=== PATIENT | female | born 1955 | race Hispanic/Latino ===

== ENCOUNTER 2018-05-20 11:33 | Outpatient (CLI) | payer OTHER, SELFPAY ==
--- NOTE | 2018-05-20 17:12 | EKG ---
Test Reason : Blood Pressure : / mmHG Vent. Rate : 065 BPM Atrial Rate : 065 BPM P-R Int : 184 ms QRS Dur : 090 ms QT Int : 398 ms P-R-T Axes : 065 067 029 degrees QTc Int : 413 ms Normal sinus rhythm Cannot rule out Anterior infarct , age undetermined Abnormal ECG Confirmed by TERE HOGAN ([id number]) on 05/20/2018 5:12:33 PM Referred By: YUE Confirmed By:TERE HOGAN
== END 2018-05-20 11:34 | disposition home or self-care (01) ==
LOC: LABBT 11:33
PROVIDERS: ATTEND Orthopaedic Surgery
DX: Z01.818 Encounter for other preprocedural examination (principal); S52.502A Unspecified fracture of the lower end of left radius, initial encounter for closed fracture
CPT/HCPCS: 93005; 93010

== ENCOUNTER 2018-05-21 05:42 | Day surgery (SDC) | payer OTHER, SELFPAY ==
[2018-05-20 11:40] VITALS: BMI 27.1
[2018-05-21] MEDS ORDERED: CEFAZOLIN/Water 2 GM/20 ML SYRINGE ONE (06:52)
[2018-05-21] MEDS ORDERED: Fentanyl 100 MCG/2 ML VIAL ONE ×4 (07:24→09:02)
[2018-05-21] MEDS ORDERED: Midazolam HCl 2 mg/2 ml Vial ONE (07:24)
--- NOTE | 2018-05-21 08:25 | RAD ---
2 VIEWS LEFT WRIST: Date: 05/21/18 INDICATION: Open reduction and internal fixation of left wrist. COMPARISON: Prior exam dated 05/16/18. FINDINGS: Since the comparison examination, there has been interval reduction and volar plating of the distal r adial metaphyseal fracture. A minimally displaced ulnar styloid process fracture appears unchanged in position. IMPRESSION: Postoperative left wrist. POS: CAL
[2018-05-21] MEDS ORDERED: Ketorolac Tromethamine 30 MG/ML VIAL ONE (08:36)
[2018-05-21] MEDS ORDERED: Morphine 4 MG/ML VIAL ONE (09:05)
--- NOTE | 2018-05-21 09:33 | OP ---
DATE OF OPERATION: 05/21/2018 OPERATION: Open reduction and internal fixation of left distal radius fracture. PREOPERATIVE DIAGNOSIS: Displaced left distal radius fracture. POSTOPERATIVE DIAGNOSIS: Displaced left distal radius fracture. COMPLICATIONS: None. ESTIMATED BLOOD LOSS: Minimal. SURGEON: Alverto Hernandes M.D. ANESTHESIA: General plus local. INDICATIONS: Ms. June is a 62-year-old female, who has fallen. She fractured her distal radius. She was indicated for open reduction and internal fixation to restore anatomic alignment and promote healing. Risks have been reviewed in detail. She has elected to proceed with the operation. DESCRIPTION OF OPERATION: Ms. June was identified in the preoperative holding area. Her correct extremity was marked. She was carried to the operating room. She was positioned supine. General an esthesia was induced. A multidisciplinary timeout was performed. The left upper extremity was prepp ed and draped in sterile fashion. We began the procedure with a volar FCR approach to the radius. We dissected down through the subcut aneous tissues to the FCR tendon. The tendon sheath was opened. We retracted the tendon to the ulna r aspect of the wrist. We then incised the deep tendon sheath. At this point, we reflected the flex or muscles and elevated the pronator quadratus from the distal radius. At this point, we examined an d exposed the fracture. There was a displaced distal radius fracture. We used a Glenn elevator to r educe the fracture back into its anatomic position. We reconstituted the radial tilt and length. At this point, we applied a [employer] volar distal radius plate. A proximal nonlocking screw was placed as well as multiple locking screws distally. We took x-ray images throughout this procedure. At thi s point, we filled all screw holes. We then irrigated and closed after final images. A sterile dres sing and a splint were placed. The patient was taken to the recovery room in good condition without complication.
[2018-05-21] MEDS ORDERED: HYDROcodone/Acetaminophen 5/325 mg Tablet ONE (10:03)
== END 2018-05-21 10:57 | disposition home or self-care (01) ==
LOC: SDC 05:42
PROVIDERS: ATTEND Orthopaedic Surgery
PROC: 0PSJ04Z Reposition Left Radius with Internal Fixation Device, Open Approach (ICD-10-PCS; principal; 2018-05-21)
DX: S52.502A Unspecified fracture of the lower end of left radius, initial encounter for closed fracture (principal); W19.XXXA Unspecified fall, initial encounter
CPT/HCPCS: 76001; 96374; 96375; J1885; J2250; J2270; J3010